=== PATIENT | female | born 1995 | race Caucasian/White ===

== ENCOUNTER 2022-03-25 11:37 | Emergency (ER) | payer OTHER ==
[~2022-03-25] VITALS: Ht 167.6 cm; Wt 62.6 kg
--- NOTE | 2022-03-25 11:41 | NUR ---
Patient to ER bed 08 to gown for evaluation. Side rails up.
[2022-03-25 11:44] VITALS: BP_SYST 116
--- NOTE | 2022-03-25 11:47 | NUR ---
PT BIB AWAKE AND ALERT AOX4, NO SOB OR DISTRESS. PT C/O PAIN AND REDNESS TO LEFT EYE. PT STATES SHE WEARS CONTACT LENES AND NOT SURE IF THEY ARE STILL IN AT THE CURRENT TIME. PT STATES HER L EYE IS BLURRY AT THE CURRENT TIME. PT HAS NO HX.
--- NOTE | 2022-03-25 11:50 | NUR ---
MD DR LAY AT BEDSIDE
[2022-03-25] MEDS ORDERED: OFLO5DRO6 EACH EYE (14:24)
[2022-03-25] MEDS ORDERED: ONDANSETRON 4 MG ODT TAB PO ONE (14:30)
[2022-03-25 14:36] VITALS: BP_SYST 126
--- NOTE | 2022-03-25 14:38 | NUR ---
Patient given written and verbal discharge instructions and verbalizes understanding. ER MD DEAN discussed with patient the results and treatment provided. Patient in stable condition. ID arm band removed. Rx of OCUFLOX given. Patient educated on pain management and to follow up with PMD. Pain Scale 4/10. Opportunity for questions provided and answered. Medication side effect fact sheet provided.
== END 2022-03-25 14:38 | disposition home or self-care (01) ==
LOC: SED 11:37
DX: H10.32 Unspecified acute conjunctivitis, left eye (principal); H57.12 Ocular pain, left eye; Z79.899 Other long term (current) drug therapy
CPT/HCPCS: 99283; Q0162